=== PATIENT | female | born 1930 | race Caucasian/White ===

== ENCOUNTER 2017-01-25 13:23 | Inpatient (IN) | payer MEDICARE, OTHER ==
[~2017-01-25] VITALS: Ht 165.1 cm; Wt 55.0 kg
--- NOTE | ~2017-01-25 | DS ---
ADMIT: 01/25/2017 RM/LOC: 431 [facility] MR#: [id number] 2620 [facility] [address] [place] [phone] [place] [address] General Discharge Summary SEX: F AGE: 86 : 1930 ADMISSION DATE: 01/25/2017 DISCHARGE DATE: 01/29/2017 SERVICE: Neurosurgery. REASON FOR ADMISSION: 1. Fall. 2. Pontine and midbrain hemorrhage. HOSPITAL COURSE: Ms. Delvalle is a very unfortunate 86-year-old female whom was in her normal state of health until the day of admission. She had spoken to family around 7:30 a.m. and did not show for her appointment at 11:30. Her family went to check on her and found her down and unresponsive in her hallway. EMS was called, and she was taken to the [facility]. There, she was unresponsive, had unequal pupils and appeared to be posturing with extension of her right upper extremity. She was immediately transferred to [facility] ER for further care. She remained unresponsive and was intubated. She had a history of atrial fibrillation and was on Xarelto and aspirin. A CT scan of her head was obtained and revealed a pontine and midbrain hemorrhage. Dr. Carreon was consulted. She had a very mild cough, no corneal reflex, no gag, and her pupils were mid range and fixed. She had no motor movement. She did have triple flexor response to the dorsum of the hallux. It was felt that this was not a survivable hemorrhage. Family decided on comfort cares. She was admitted to the floor and comfort cares. Social Work was consulted for post hospital placement. She continued over the next few days to be unresponsive and resting comfortably. Family remained at bedside. On the day of discharge, she was stable for transfer to [facility] with [facility]. DISCHARGE CONDITION: Good. ADMIT: 01/25/2017 RM/LOC: 431 [facility] [place] MR#: [id number] [address] [place] [phone] CORNELIUS DELVALLE [place], [place] [id number] General Discharge Summary SEX: F AGE: 86 : 1930 MEDICATIONS: 1. Tylenol 650 mg suppository rectally q.4 hours p.r.n. 2. Isopto Atropine 1% 1 to 2 drops sublingual q.2 hours p.r.n. DISCHARGE INSTRUCTIONS: She was discharged to [facility] with comfort cares. DISPOSITION: She was discharged to [facility]. Total abpt-gi-ildf time for the discharge planning care coordination was 30 minutes. Romelia Ross APRN / Berlin Carreon MD / michell JOB #: [id number] CC: Berlin Carreon MD, Attending Physician Forest Carreon MD, Family Physician
--- NOTE | 2017-01-29 08:38 | HP ---
ADMIT: 01/27/2017 RM/LOC: 431 [facility] MR#: [id number] 2620 [facility] [address] [place] [id number] [address]NEL[address]LE [address] [place], [place] [id number] History and Physical SEX: F AGE: 86 : 1930 DATE OF SERVICE: HISTORY OF PRESENT ILLNESS: Ms. 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 She did not make the appointment, and emergency services were dispatched to her house. She was found down on the floor. She had spoken with somebody at 07:30 in the morning, so she has around 4 or 5 hours it sounds like of unaccounted for. She was brought into [place] with fixed and midrange pupils. CT scan was obtained, and she was transferred here. PAST MEDICAL HISTORY: Coronary artery disease, atrial fibrillation, hypercholesterolemia, hypothyroidism, and prior cancer. MEDICATIONS: Reviewed in the transfer paperwork from [place]. ALLERGIES: REVIEWED IN THE TRANSFER PAPERWORK FROM [place]. SOCIAL HISTORY: She lives alone. She has no children. Her nephew and his were present at bedside. The patient has a twin sister, who is not here yet. FAMILY HISTORY: No history of neurosurgical disease. REVIEW OF SYSTEMS: Unobtainable. PHYSICAL EXAMINATION: VITAL SIGNS: Blood pressure was 107/65, 58 beats, respiring 15 times a minute on the ventilator on 100% FiO2. GENERAL: She is a woman in clear distress with no movement. HEENT: Eyes are closed. CHEST: Normal chest excursion with ventilation. ABDOMEN: Soft. NEUROLOGICAL EXAM: MENTAL STATUS: Comatose. CRANIAL NERVES: Cranial nerves II through XII are individually tested. She has a very mild cough. No corneal reflex. No gag. Pupils are midrange and fixed. MOTOR EXAM: There is no movement in any extremities. SENSATION: Only triple flexor responses are preserved with no sign of movement to noxious stimuli. DEEP TENDON REFLEXES: 2/4 in the upper and lower extremities without clonus. She does have a clear triple flexor response revealed with pinprick to the dorsum of the hallux. The hallux is driven into the noxious stimulus. CEREBELLAR: Unable to obtain. GAIT: Unable to obtain. ASSESSMENT AND PLAN: Ms. Delvalle is an 86-year-old woman with a pontine and midbrain hemorrhage, this is very extensive. She is on blood thinners, Xarelto and aspirin. The patient has barely any neurological function nor with this type of severe amount of hemorrhage in the pierce and midbrain would I expect ADMIT: 01/27/2017 RM/LOC: 431 [facility] MR#: [id number] [address] [id number] [place] [address] History and Physical SEX: F AGE: 86 : 1930 her to recover any function. I told her family that it is most likely that if she does not have her heart stop or from this that she would be ventilator- dependent, comatose patient for the remainder of her life necessitating tracheostomy and gastrostomy, as this hemorrhage does not appear to be reasonably survivable. This is especially because of the blood thinners. There is really nothing that I can do for her at this time. They would like to put her up to the ICU and have her sister be able to come see her. The patient may progress to brain , although she may not because some portions of the medulla are spared. I think any surgical care at this point would be futile in nature. I discussed all this with the family. I will plan to put her up in the intensive care unit for family to arrive. They are looking into whether or not the patient has a living will or any other documentation. Berlin Carreon MD/ michell JOB #: [id number] CC: Berlin Carreon, Attending Physician Forest Carreon, Family Physician
[2017-01-30] MEDS ORDERED: OXYCONTIN15 MG PO (17:09)
[2017-01-30] MEDS ORDERED: NEURONTIN800 MG PO (17:09)
[2017-01-30] MEDS ORDERED: SYNTHROID DPS0.1 MG PO (17:09)
[2017-01-30] MEDS ORDERED: FENOFIBRATE160 MG PO (17:10)
[2017-01-30] MEDS ORDERED: FARXIGA10 MG PO (17:10)
[2017-01-30] MEDS ORDERED: ZOCOR DPS40 MG PO (17:10)
[2017-01-30] MEDS ORDERED: MICRONASE DPS5 MG PO (17:11)
[2017-01-30] MEDS ORDERED: OXACILLIN SODIUM2 GM IV (17:13)
[2017-01-30] MEDS ORDERED: TYLENOL-DPS650 MG PO (18:41)
[2017-01-30] MEDS ORDERED: ISOPTO ATROPINE15 ML SL (18:43)
--- NOTE | 2017-01-31 09:20 | ER ---
ADMIT: 01/25/2017 RM/LOC: [address] [facility] MR#: [id number] [address] [id number] CLARK [place] [address] Emergency Room Report SEX: F AGE: 86 : 1930 DATE: 01/25/2017 CHIEF COMPLAINT: Unresponsive. HISTORY OF PRESENT ILLNESS: The patient is an 86-year-old female, who is being transferred to us from [facility]. I did speak to Dr. Givens who saw the patient in their facility. From my understanding, the patient had spoken to family around 7:30 in the morning, but then when she did not show up to an appointment this morning, so in order to check on her and found her lying on the floor of her home with what looks like some bruising to her face and a concern that she had a fall. She was unresponsive, so EMS was called. She was taken to outside facility. Review of her history showed that she does have chronic atrial fibrillation and is on Xarelto. Description from Dr. Givens is, the patient had unequal pupils, was unresponsive and appeared to have some posturing with extension of her right upper extremity. Concern of course is for a head bleed. We discussed doing a CT or just getting the patient transferred to our facility with respect to most timely management of the patient decided just to get the patient ready and have her transferred to our facility. The patient arrived, she was still unresponsive, but intubated. I was able to get some history from family members who consisted of nieces and nephews. I also did get some chart history from [facility] as far as her past medical history. Apparently, she lives alone and this fall was not witnessed by anybody. From my understanding the conversation she had with them at 7:30 a.m., she was normal at that time. 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 MEDICATIONS: See nurse's note. It is noted that she is on Xarelto. ALLERGIES: NONE. SOCIAL HISTORY: Denies smoking. Review of history shows no smoking, drug, or alcohol use, and she does apparently live at home alone. PHYSICAL EXAMINATION: VITAL SIGNS: Blood pressure is 115/50, sats 100%. She is intubated. Heart rate 79, respirations 15 and intubated, temp 97. GENERAL: Airway, she is on a ventilator breathing. She is having occasional breaths over the vent circulation. She has good circulation in all 4 extremities and pulses. HEENT: Secondary survey, head shows that she has ecchymoses and swelling over her left eyelids and forehead. Pupils are 3 mm and unreactive, otherwise head shows no obvious trauma. HEART: Irregular, not tachycardic. LUNGS: She has good breath sounds in both lung murillo. ABDOMEN: Soft. SKIN: Warm and dry. She has no significant pedal edema. I cannot elicit any purposeful movement. Not getting any withdraw to noxious stimuli. Unable to ADMIT: 01/25/2017 RM/LOC: [address] [facility] MR#: [id number] [address] [place] [phone] CORNEL[address]US MACHUCA [address] [place] [address] Emergency Room Report SEX: F AGE: 86 : 1930 assess sensation effectively. The only movement is some slight extension posturing of her left lower extremity. EMERGENCY DEPARTMENT COURSE: The patient was called as a partial trauma transfer from [facility]. Since she got to the Emergency Department, we switched over to ventilator and got prepared to go to a head CT. Head CT did show a large hemorrhage in the pontine infarct with extension superiorly into the left thalamus, next small focal infarcts scattered in the cortex with subcortical areas of the left hemisphere. Chest x-ray shows ET tube in place. It is difficult to see the end of the NG. CT C-spine shows extensive degenerative disease with ET tube in place, otherwise nothing acute. ED course, once I saw the head CT, I contacted Dr. Carreon, who is on for Neurosurgery and he evaluated the patient in the ER. Based on his examination, I does not believe this is a survivable head bleed and after discussion with the family, decided on comfort cares. The patient was extubated in the ER and plan at this time is to get her admitted to the hospital for comfort cares. DIAGNOSES: 1. Extensive hemorrhage in the pierce and brainstem. 2. Imminent . Abhishek Miranda MD/ iggyl JOB #: [id number] CC: Forest Carreon MD, Attending Physician Forest Carreon MD, Family Physician
== END 2017-01-29 15:00 | disposition short-term general hospital (02) | DRG 66 ==
LOC: ER 13:23 → 4PCU 15:20
PROVIDERS: ADMIT Neurological Surgery
PROC: 5A1945Z Respiratory Ventilation, 24-96 Consecutive Hours (ICD-10-PCS; principal; 2017-01-25)
DX: I61.3 Nontraumatic intracerebral hemorrhage in brain stem (principal); R40.20 Unspecified coma; Z51.5 Encounter for palliative care; I50.9 Heart failure, unspecified; I48.2 Chronic atrial fibrillation; E11.9 Type 2 diabetes mellitus without complications; E03.9 Hypothyroidism, unspecified; E78.00 Pure hypercholesterolemia, unspecified; I25.10 Atherosclerotic heart disease of native coronary artery without angina pectoris; Z95.1 Presence of aortocoronary bypass graft; Z85.810 Personal history of malignant neoplasm of tongue; Z79.01 Long term (current) use of anticoagulants; Z79.84 Long term (current) use of oral hypoglycemic drugs